=== PATIENT | female | born 1975 | race Hispanic/Latino ===

== ENCOUNTER 2017-01-11 10:43 | Emergency (ER) | payer OTHER ==
[~2017-01-11] VITALS: Ht 162.6 cm; Wt 95.5 kg
[2017-01-11 10:39] VITALS: BP 135/76; PULSE 94; RESP 22; O2SAT 98
--- NOTE | 2017-01-11 11:37 | DRSVH ---
PROCEDURE: X-RAY CHEST ONE VIEW, PORTABLE ([id number]) INDICATIONS: CHEST PAIN TECHNIQUE: One view of the chest was acquired. COMPARISON: None. FINDINGS: Surgical changes and devices: None. Lungs and pleura: No pleural effusions or pneumothorax. Lungs are clear. Mediastinum: Mediastinal contours appear normal. Heart size is normal. Bones and chest wall: No suspicious bony lesions. Overlying soft tissues appear unremarkable. IMPRESSION: Negative chest. No acute cardiopulmonary process is evident. Dictated by: Johnny Salinas M.D. on 01/11/2017 at 10:35 Approved by: Johnny Salinas M.D. on 01/11/2017 at 10:36
[2017-01-11 11:43] LABS: BASOPHILS % (AUTO) 0.4 % (0-3); EOSINOPHILS % (AUTO) 2.1 % (0-5); MONOCYTES % (AUTO) 4.8 % (4-12); Mean Corpuscular Hemoglobin 28.9 pg (27.0-35.0); Mean Corpuscular Volume 85.7 fL (81-100); NEUTROPHILS % (AUTO) 70.8 % (40-74); Platelet Count 259 bil/L (150-400)
--- NOTE | 2017-01-11 11:56 | ED.REPORT ---
HPI-Dizziness / Weakness Date of Service Jan 11, 2017 ED Provider: Luis Camarena PA-C Padmini is otherwise healthy 41-year-old female who presents with a chief complaint of dizziness. She reports an episode prior to presentation of nausea , chest pressure, dizziness, tachycardia and a sensation that "I could barely see." EMS was engaged. Symptoms had largely resolved by the time EMS was on scene, with nausea remaining. Denies history of similar episodes. Denies loss of consciousness, chest pain, vomiting, focal neurological deficits. Denies history of cardiac disease, CVA, TIA, hypertension, hyperlipidemia, diabetes, cocaine, methamphetamine, family history of VA. Denies recent trauma, immobilization, surgery, exogenous estrogen, control, history of DVT/PE, unilateral leg swelling, cancer, hemoptysis. Denies acute emotional stress. Admits to history of chronic left-sided abdominal pain aggravated by eating and recent URI symptoms. Nursing Notes Stated Complaint: DIZZINESS Chief Complaint: Chest Pain Nursing Notes Reviewed: Yes Allergies: Coded Allergies: No Known Allergies (Unverified , 01/11/17) General Time Seen by MD: 11:54 Chief Complaint Dizzy Risk Factors HEART Score HEART for MACE: Low index of susp (0), Normal ECG (0), Age under 45 (0), 1-2 CAD risk factors (1), < or = to NL troponin (0) HEART for MACE Score: 0-3 (low risk 0.9%-1.7%) Review of Systems General: Denies fever, chills, malaise. HEENT: Admits congestion, headache, sore throat. Respiratory: Denies dyspnea, cough, shortness of breath, wheezing. Cardiovascular: Denies chest pain, palpitations. Gastrointestinal: Admits abdominal pain. Denies vomiting, diarrhea. Genitourinary: Denies frequency, urgency, dysuria, hematuria. Otherwise as noted in HPI. Physical Exam General: Well appearing, well developed, obese, no acute distress. Head: Atraumatic, normocephalic. Eyes: No scleral icterus or injection. No discharge. Vision grossly intact. ENT: Voice clear, hearing grossly intact. Respiratory: Regular rate and rhythm. Breath sounds present, clear to auscultation and equal bilaterally. No respiratory distress. No increased work of breathing, speaks in complete sentences. Cardiovascular: Regular rate and rhythm, without murmur, gallop or rub. No pedal edema. Gastrointestinal: Obese non-tender without guarding or rebound. Bowel sounds normoactive. Skin: Warm and dry. Neurological: Negative pronator drift. Normal finger-nose, heel-downey, rapid hand. Cranial nerves: Vision grossly intact, PERRL, EOMI. Facial motion symmetrical, sensation to light touch over forehead, maxilla and mandible present and equal B /L. Voice clear and fluent, no drooling/pooling of saliva, uvula rises midline. Psychological: Alert and oriented. Speech appropriate, linear and logical. Behavior appropriate. Initial Vital Signs Vital Signs (First) Date Time Temp Pulse Resp B/P Pulse Ox O2 Delivery O2 Flow Rate FiO2 01/11/17 10:39 36.3 94 22 135/76 98 Room Air Initial VS: Vital signs normal Interpretation & Diagnostics Interpretation & Diagnostics: PERC negative Lab Results Interpretation Result Diagram: 01/11/17 1117 01/11/17 1117 Test 01/11/17 11:17 01/11/17 13:53 White Blood Count 8.4th/mm3 (3.8-10.1) Red Blood Count 4.74mil/mm3 (3.90-5.20) Hemoglobin 13.7g/dL (12.0-15.6) Hematocrit 40.6% (35.0-46.0) Mean Corpuscular Volume 85.7fL (81-100) Mean Corpuscular Hemoglobin 28.9pg (27.0-35.0) Mean Corpuscular Hemoglobin Concent 33.7% (32.0-37.0) Red Cell Distribution Width 12.6% (12.3-15.4) Platelet Count 259bil/L (150-400) Neutrophils (%) (Auto) 70.8% (40-74) Lymphocytes (%) (Auto) 21.5% (14-46) Monocytes (%) (Auto) 4.8% (4-12) Eosinophils (%) (Auto) 2.1% (0-5) Basophils (%) (Auto) 0.4% (0-3) Sodium Level 137mEq/L (134-144) Potassium Level 4.1mEq/L (3.5-5.2) Chloride Level 98mEq/L (97-108) Carbon Dioxide Level 25mmol/L (18-29) Blood Urea Nitrogen 13mg/dL (6-24) Creatinine 0.60mg/dL (0.57-1.00) Estimat Glomerular Filtration Rate 156mL/min (>59) Glucose Level 131mg/dL (60-99) Calcium Level 9.3mg/dL (8.5-10.1) Magnesium Level 1.9mg/dL (1.6-2.6) Total Bilirubin 0.2mg/dL (0.0-1.2) Aspartate Amino Transf (AST/SGOT) 22U/L (0-50) Alanine Aminotransferase (ALT/SGPT) 28U/L (0-32) Alkaline Phosphatase 73U/L (25-150) Total Protein 7.2g/dL (6.4-8.4) Albumin 4.3g/dL (3.4-5.0) Troponin T < 0.010ug/L (0.0-0.011) X-Ray Chest Interpretation Chest Xray Interpretation: PROCEDURE: X-RAY CHEST ONE VIEW, PORTABLE ([id number]) INDICATIONS: CHEST PAIN IMPRESSION: Negative chest. No acute cardiopulmonary process is evident. Interpretation / Wet Read by: Interpret - Radiologist Re-Eval/Medical Decision Med Decision/Clinical Course I discussed this case with Dr. Ford. Otherwise healthy 41-year-old female presents with chief complaint of a brief episode of dizziness, nausea, presyncope that occurred prior to presentation. EMS was engaged. At presentation symptoms have largely resolved. She does report some chronic left side intermittent abdominal pain that is aggravated by eating. Physical examination is benign, with normal neurological examination. EKG is normal. CBC, CMP are normal. Initial and 2 hour troponins are negative. Chest x-ray is normal. Patient is PERC negative by history and physical. At this point I feel we have ruled out dangerous causes for this episode including TIA/CVA, PE, VA. Also reassured against a dangerous cause of her abdominal pain including pancreatitis and diverticulitis. Patient admits to significant stress in her life at this time. This may be an anxiety reaction. She has requested information on getting counseling, which was provided. Advise primary care follow-up, provided emergency return precautions. Patient verbalizes consent to an understanding of the plan. Patient Discharge & Departure Impression: Primary Impression: Pre-syncope Additional Impressions: Acute situational disturbance Abdominal pain Abdominal location: left upper quadrant Qualified Code: R10.12 - Left upper quadrant pain Disposition: Home Discharge Condition All VS Reviewed: Yes Condition: Stable Additional Instructions: History, physical, blood work, chest x-ray and EKG are all reassuring that the symptoms you experienced were not caused by an immediately dangerous condition such as a heart attack, stroke or blood clot in your lungs. I believe you are stable and safe to be discharged to home. He had a good discussion with our licensed social worker, who provide you with mental health resources. I think counseling could be very helpful to you in dealing with your life stress. We discussed your occasional stomach pain. Based on history, physical and blood work I am reassured this is unlikely to be caused by an immediately dangerous condition. Please follow-up with your primary care provider about this. Contact your new primary care provider in the next few days to establish care and follow-up on this episode. Return to the emergency department for any new or worsening symptoms such as pain in your chest, shortness of breath, loss of consciousness. Referrals: William Magallon EDSupervising Provider for APC: Johnathan Ford MD, Shujun ARNP Turner, Seth PA-C Jan 11, 2017 11:56
[2017-01-11 12:12] LABS: TROPONIN T 0.01 ug/L (0.0-0.011)
[2017-01-11 12:23] LABS: Magnesium 1.9 mg/dL (1.6-2.6)
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
[2017-01-11 15:45] VITALS: BP 169/61; PULSE 83; RESP 16; O2SAT 97
== END 2017-01-11 16:10 | disposition home or self-care (01) ==
LOC: SED 10:43 → EDBD 10:43 → SED 16:10
DX: R55 Syncope and collapse (principal); F43.0 Acute stress reaction; R10.12 Left upper quadrant pain; R07.89 Other chest pain